=== PATIENT | male | born 1995 | race Caucasian/White ===

== ENCOUNTER 2023-11-24 08:52 | Emergency (ER) | payer OTHER, SELFPAY ==
--- NOTE | ~2023-11-24 | XR_ITS ---
XR chest 2V DATE: 11/24/2023 09:22 INDICATION: Left-sided chest pain. Feeling cardiac irregularities. TECHNIQUE: PA and lateral views COMPARISON: None FINDINGS: Normal heart size. No hilar or mediastinal enlargement. No pulmonary infiltrate or consolidation, pleural effusion or pulmonary vascular congestion or pneumo thorax. Included skeletal structures are unremarkable. IMPRESSION: No active cardiopulmonary disease Reviewed, dictated and finalized at location A.
--- NOTE | 2023-11-24 08:57 | ECG_ITS ---
Test Date: 2023-11-24 09:04:42 Measurements Intervals [place] Rate: 72 P: 58 LA: 149 QRS: 23 QRSD: 96 T: 37 QT: 364 QTc: 401 Interpretive Statements SINUS RHYTHM No previous ECG available for comparison Electronically Signed On 11-25-2023 12:54:03 CDT by Drew Queen M.D.
[2023-11-24 08:59] VITALS: BP 133/77; PULSE 71; RESP 14; TEMP 36.4; O2SAT 100
[2023-11-24 09:05] VITALS: PULSE 68
[2023-11-24 09:07] VITALS: PULSE 68
[2023-11-24 09:15] LABS: Basophils Percent Auto 0.4 % (0.2-1.2); Eosinophils Percent Auto 0.5 % (0-4.4); Hematocrit 40.6 % (42.0-52.0); Hemoglobin 14.5 g/dL (14.0-18.0); Immature Granulocyte Absolute 0.02 K/mm3 (0.00-0.031); Immature Granulocyte Percent A 0.2 % (0-0.5); Lymphocytes Absolute Auto 1.92 K/mm3 (0.9-3.2); Lymphocytes Percent Auto 23.7 % (18.3-44.2); Mean Corpuscular HGB Conc 35.7 g/dl (32-36); Mean Corpuscular Hemoglobin 30.4 pg (26-34); Mean Corpuscular Volume 85.1 fl (80-100); Mean Platelet Volume 8.8 fl (7.4-10.4); Monocytes Absolute Auto 0.7 K/mm3 (0.1-0.6); Monocytes Percent Auto 8.3 % (2.6-8.5); Neutrophils Absolute Auto 5.4 K/mm3 (1.3-6.7); Neutrophils Percent Auto 66.9 % (45.5-73.1); Platelet Count Result 307 k/mm3 (150-375); Red Blood Count 4.77 M/mm3 (4.6-6.20); Red Cell Distribution Width 11.6 % (11.5-14.5); White Blood Count 8.1 K/mm3 (4.5-10.0)
[2023-11-24] MEDS: ASPIRIN 81 MG CHEWABLE TABLET 324 MG PO (09:15)
--- NOTE | 2023-11-24 09:18 | ED.CHESTPAIN ---
HPI - Chest Pain General Chief Complaint: Chest Pain Stated Complaint: chest pain,.palpatations Time Seen by Provider: 11/24/23 09:02 History of Present Illness HPI narrative: 28-year-old male presents to emergency department for evaluation of rapid heart rate and left arm pain. Patient states over the course of the last few days he has had increased heart palpitations he associated with after eating and states symptoms typically last a few seconds. Patient states over the last day he has had increased episodes of this and does have some numbness going into his left arm. Patient reports a prior history of epilepsy and family history [place]. Related Data Allergies Allergy/AdvReac Type Severity Reaction Status Date / Time No Known Allergies Allergy Verified 11/24/23 09:07 Review of Systems Review of Systems: All systems reviewed & are unremarkable except as noted in HPI and below Exam Narrative: APPEARANCE: Well appearing, no pain, no distress, well-nourished. HEAD: normocephalic, atraumatic. EYES: PERRLA/EOMI, conjunctivae clear. NOSE: Normal no drainage EARS:TMS clear with good light reflex. THROAT: Pharynx clear, no exudate. NECK: Supple. No adenopathy, no masses. RESPIRATORY: Airway patent, respirations nonlabored. Clear to auscultation bilaterally, no rales, rhonchi, wheezing. CARDIOVASCULAR: Regular rate and rhythm without murmurs rubs or gallops. ABDOMINAL: Soft, nontender, nondistended, normal bowel sounds MUSCULOSKELETAL: Moves all extremities. Strength/ROM intact, No edema, No calf tenderness. NEURO: Alert. Cranial nerves II through XII intact. Grossly intact SKIN: Warm, dry. Normal Color Course Vital Signs Vital signs: Vital Signs Temperature 97.6 F 11/24/23 08:59 Pulse Rate 71 11/24/23 08:59 Respiratory Rate 14 11/24/23 08:59 Blood Pressure 133/77 11/24/23 08:59 Pulse Oximetry 100 11/24/23 08:59 Temperature 97.6 F 11/24/23 08:59 Pulse Rate 70 11/24/23 13:23 Respiratory Rate 16 11/24/23 13:23 Blood Pressure 126/78 11/24/23 13:23 Pulse Oximetry 100 11/24/23 13:23 MDM - Chest Pain MDM Narrative Medical decision making narrative: 28-year-old male presents to the emergency department for evaluation for intermittent heart palpitations and left-sided arm pain. Patient is afebrile with no leukocytosis and a stable hemoglobin. Patient has no acute abnormalities on his CMP, patient has normal Mag. Patient had negative serial troponins. D-dimer was negative. Chest x-ray shows no acute cardiopulmonary abnormality. Patient was asymptomatic while in the emergency department. Patient was encouraged of close follow-up with his primary care physician for additional outpatient cardiac testing and a potential Holter monitor. All questions concerns were addressed patient was comfortable with plan for discharge and close follow-up Differential Diagnosis Differential diagnosis: Likely atypical chest pain, chest pain and biliary colic Lab Data Attestation: I reviewed the patient's lab results. 11/24/23 09:09 11/24/23 09:09 Labs: Lab Results 11/24/23 11/24/23 Range/Units 09:09 11:53 WBC 8.1 (4.5-10.0) K/mm3 RBC 4.77 (4.6-6.20) M/mm3 Hgb 14.5 (14.0-18.0) g/dL Hct 40.6 L (42.0-52.0) % MCV 85.1 (80-100) fl MCH 30.4 (26-34) pg MCHC 35.7 (32-36) g/dl RDW 11.6 (11.5-14.5) % Plt Count 307 (150-375) k/mm3 MPV 8.8 (7.4-10.4) fl Immature Gran % (Auto) 0.2 (0-0.5) % Neut % (Auto) 66.9 (45.5-73.1) % Lymph % (Auto) 23.7 (18.3-44.2) % [place] % (Auto) 8.3 (2.6-8.5) % Eos % (Auto) 0.5 (0-4.4) % Baso % (Auto) 0.4 (0.2-1.2) % Lymph # (Auto) 1.92 (0.9-3.2) K/mm3 [place] # (Auto) 0.7 H (0.1-0.6) K/mm3 Eos # (Auto) 0.0 (0-0.3) K/mm3 Baso # (Auto) 0.0 (0.0-0.1) K/mm3 Abs Immat Gran (auto) 0.02 (0.00-0.031) K/mm3 Absolute Neuts (auto) 5.4 (1.3-6.7) K/mm3 Absolute Nucleated RBC
[2023-11-24 09:23] LABS: Alanine Aminotransferase 22 U/L (6-50); Albumin Level 4.8 g/dL (3.5-5.1); Alkaline Phosphatase 65 U/L (38-126); Anion Gap 9 mmol/L (4-12); Aspartate Amino Transferase 33 U/L (17-59); Bilirubin,Total 0.6 mg/dL (0.2-1.3); Blood Urea Nitrogen 18 mg/dL (9-20); Calcium 9.3 mg/dL (8.4-10.2); Carbon Dioxide 29 mmol/L (22-30); Chloride 103 mmol/L (98-107); Estimated CRCL calculation 102 ml/min; Estimated Glomerular Filt Rate > 60; Glucose 94 mg/dL (65-110); Lipase 56 U/L (23-300); Potassium 4.5 mmol/L (3.4-5.0); Sodium 141 mmol/L (137-145)
[2023-11-24 09:27] LABS: INR 1.1
[2023-11-24 09:28] LABS: Partial Thromboplastin Time 29.6 Seconds (22.3-36.8)
[2023-11-24 09:35] LABS: Troponin I < 0.012 ng/mL (0.000-0.034)
[2023-11-24 11:00] VITALS: BP 115/69; PULSE 67; RESP 12; O2SAT 99
[2023-11-24 11:06] LABS: D Dimer < 0.27 ug/mL (<0.48)
[2023-11-24 12:24] LABS: Troponin I < 0.012 ng/mL (0.000-0.034)
[2023-11-24 12:57] VITALS: BP 105/81; PULSE 59; RESP 21; O2SAT 97
[2023-11-24 13:23] VITALS: BP 126/78; PULSE 70; RESP 16; O2SAT 100
== END 2023-11-24 13:24 | disposition home or self-care (01) ==
PROVIDERS: Emergency Provider Emergency Medicine
DX: R00.2 Palpitations (principal); R07.89 Other chest pain; G40.909 Epilepsy, unspecified, not intractable, without status epilepticus
CPT/HCPCS: 36415; 71046; 80053; 83690; 84484; 85025; 85380; 85610; 85730; 93005; 99284; A9270

== ENCOUNTER 2024-03-22 10:15 | Emergency (ER) | payer OTHER, SELFPAY ==
[2024-03-22 10:21] VITALS: BP 132/100; PULSE 86; RESP 20; TEMP 36.1; O2SAT 100
[2024-03-22] MEDS: levETIRAcetam 500 MG TABLET 1500 MG PO (11:08)
[2024-03-22 11:09] VITALS: PULSE 74; O2SAT 100
[2024-03-22 11:38] LABS: Glucose Point of Care 73 mg/dl (65-105)
--- NOTE | 2024-03-22 12:04 | ED.SEIZURE ---
HPI - Seizure General Chief Complaint: Seizure Stated Complaint: seizure Time Seen by Provider: 03/22/24 11:02 History of Present Illness HPI Narrative: patient with history of seizures was supposed to be on Keppra twice a day but only takes it once a day with last seizure 7 years ago, was at work when he felt an aura, then had a witnessed seizure. Currently only reports mild headache. Related Data Allergies Allergy/AdvReac Type Severity Reaction Status Date / Time No Known Allergies Allergy Verified 03/22/24 11:12 Review of Systems Review of Systems: All systems reviewed & are unremarkable except as noted in HPI and below Exam Narrative: EXAMINATION OF ORGAN SYSTEMS/BODY AREAS: Constitutional: Vital signs per nursing GENERAL:[No acute distress, non-toxic appearing.] HEAD: Normal with no signs of head trauma. EYES: EOMI, conjunctiva normal , PERRL ENT: Hearing grossly intact LUNGS: Nonlabored breathing. HEART: [Regular rate and rhythm] ABD: [Soft], [nontender to palpation] EXT: Normal range of motion SKIN: [No rashes or lesions.] NEURO: [Alert and oriented x 3. No gross focal sensory or strength deficits.] normal steady gait, clear speech. PSYCH: Normal affect Course Vital Signs Vital signs: Vital Signs Temperature 97.0 F L 03/22/24 10:21 Pulse Rate 86 03/22/24 10:21 Respiratory Rate 20 03/22/24 10:21 Blood Pressure 132/100 H 03/22/24 10:21 Pulse Oximetry 100 03/22/24 10:21 Oxygen Delivery Room Air 03/22/24 10:21 Temperature 97.0 F L 03/22/24 10:21 Pulse Rate 74 03/22/24 11:09 Respiratory Rate 20 03/22/24 10:21 Blood Pressure 132/100 H 03/22/24 10:21 Pulse Oximetry 100 03/22/24 11:09 Oxygen Delivery Room Air 03/22/24 11:09 MDM - Seizure MDM Narrative Medical decision making narrative: 28M presenting with breakthrough seizures occurring today, likely from nonadherence to medications. Accu-Chek is normal. Seizure precautions are initiated. Patient was loaded with their home medication and counseled about the importance of taking medications daily as prescribed. [He] expressed understanding of instructions, remained stable in the emergency department for a period of observation without any recurrence of the symptoms and was discharged in stable condition with return precautions and outpatient follow-up. at bedside is a medicine agreeable to keep an on him. I do feel this would be a safe and appropriate discharge. Lab Data Labs: Lab Results 03/22/24 Range/Units 11:35 POC Capillary Glucose 73 (65-105) mg/dl Discharge Plan Discharge Clinical Impression: Epileptic seizure Patient Disposition: Home, Self-Care Condition: Stable Instructions: Antibiotic Form, Epilepsy (ED) Additional Instructions: Please follow-up with the neurologist, make sure to take your seizure medication as prescribed. If you have another seizure or any other concerning issues please come back to the emergency room. Follow-up/Referrals: PHYSICIAN NOT ON STAFF,NONSTAFF [Primary Care Provider] -
[2024-03-22 12:13] VITALS: BP 147/76; PULSE 65; RESP 20; O2SAT 99
== END 2024-03-22 12:15 | disposition home or self-care (01) ==
PROVIDERS: Emergency Provider Emergency Medicine
DX: G40.909 Epilepsy, unspecified, not intractable, without status epilepticus (principal); T42.6X6A Underdosing of other antiepileptic and sedative-hypnotic drugs, initial encounter
CPT/HCPCS: 82948; 99284; A9270